=== PATIENT | female | born 1955 | race American Indian/Alaskan Native ===

== ENCOUNTER 2017-08-01 06:45 | Day surgery (SDC) | payer BC ==
[2017-07-22 12:44] VITALS: BMI 30.7
[2017-08-01] MEDS ORDERED: Propofol 10 mg/ml Inj (20 ML) ONE ×3 (08:10→08:34)
[2017-08-01] MEDS ORDERED: Midazolam 2 MG/2 ML VIAL ONE (08:11)
[2017-08-01] MEDS ORDERED: Sodium Chloride 0.9% 1,000 ML IV SCH (09:00)
[2017-08-01 09:03] VITALS: RESP 14; TEMP 98
[2017-08-01 09:22] VITALS: PULSE 72
[2017-08-01 09:55] VITALS: BP 134/76; O2SAT 99
== END 2017-08-01 09:53 | disposition home or self-care (01) ==
LOC: ENDO 06:45
PROVIDERS: ATTEND Internal Medicine
DX: D12.5 Benign neoplasm of sigmoid colon (principal); D12.3 Benign neoplasm of transverse colon; K64.8 Other hemorrhoids; Z12.11 Encounter for screening for malignant neoplasm of colon; I10 Essential (primary) hypertension; Z90.710 Acquired absence of both cervix and uterus
CPT/HCPCS: 45380; 45381; 45385; 88305; J2250; J2704; J7040 ×2

== ENCOUNTER 2018-11-25 08:02 | Outpatient (CLI) | payer BC | END 2018-11-25 08:03 | disposition home or self-care (01) | LOC: RAD 08:02 ==